=== PATIENT | male | born 1945 | race Caucasian/White ===

== ENCOUNTER 2017-07-25 14:29 | Emergency (ER) | payer OTHER ==
[2017-07-25] MEDS ORDERED: NA CHLORIDE 0.9% 500 ML ONE (14:35)
[2017-07-25 15:11] LABS: Absolute Lymphocytes (CBC) 2.8 K/uL (0.7-4.9); Absolute Monocytes 1.3 K/uL (0.1-1.3); Basophils % 0.6 % (0-1.3); Eosinophils % 1.8 % (0-4.4); Hematocrit 38.2 % (39.6-49.0); Lymphocytes % 24.9 % (15.3-44.8); MCH 31.6 pg (27.0-35.0); MCV 96.5 fL (80-100); MPV 9.3 fL (7.6-11.3); Monocytes % 11.2 % (3.3-12.3); RBC Red Blood Cell Count 3.96 M/uL (4.33-5.43)
--- NOTE | 2017-07-25 15:13 | RAD REPORT ---
EXAM DESCRIPTION: RAD - Chest Single View - 07/25/2017 2:50 pm CLINICAL HISTORY: Chest pain. COMPARISON: 05/31/2010 FINDINGS: Portable technique limits examination quality. The lungs are grossly clear. The heart is normal in size. No displaced fractures. IMPRESSION: No acute intrathoracic process suspected.
[2017-07-25 15:18] LABS: Protime INR 1.3
[2017-07-25 15:21] LABS: Potassium 3.7 mEq/L (3.6-5.0)
--- NOTE | 2017-07-25 16:27 | EKG ---
Test Date: 2017-07-25 Test Time: 15:02:21 Clocksmith: IRINA MEASUREMENT RESULTS: Intervals: Rate: 79 NC: QRSD: 162 QT: 462 QTc: 529 [place]: P: NC: QRS: 83 T: 47 INTERPRETIVE STATEMENTS: Atrial fibrillation Right bundle branch block Abnormal ECG Compared to ECG 12/06/1991 10:00:00 Right bundle-branch block now present Sinus bradycardia no longer present Electronically Signed On 07-25-17 16:26:48 CDT by Serg Guevara
[2017-07-25 16:58] LABS: Urine Blood NEGATIVE (NEG); Urine Glucose NEGATIVE (NEG); Urine Protein NEGATIVE (NEG)
[2017-07-25] MEDS ORDERED: MIDAZOLAM HCL 2 MG/2 ML INJ ONE (17:06)
[2017-07-25] MEDS ORDERED: FENTANYL CITR 100 MCG/2 ML ONE (17:06)
--- NOTE | 2017-07-25 17:33 | ER ---
Nurse's Notes [facility] Name: Sixto Ignacio Age: 71 yrs Sex: Male : 1945 Arrival Date: 07/25/2017 Time: 14:32 Bed 4 Private MD: Diagnosis: Paroxysmal atrial fibrillation;Hypotension Presentation: 07/25 14:20 Presenting complaint: Dr Funez's office staff brought pt by wheelchair from the sv office. Pt was there with his spouse who had an appt and pt didn't appear well. EKG done, AFib. Orthostatic BP lying 86/52, sitting 86/55, standing 78/50. Pt c/o dizziness. Pt states he takes his heart meds when he feels like his heart is the way it is now. Transition of care: patient was received from another setting of care (ambulatory specialty care practice). Onset of symptoms was July 25, 2017. Care prior to arrival: None. 14:20 Method Of Arrival: Wheelchair sv 14:20 Acuity: ANURADHA 2 sv Triage Assessment: 14:25 General: Appears in no apparent distress. comfortable, well developed, Behavior is sv calm, cooperative, appropriate for age. Pain: Denies pain. EENT: No signs and/or symptoms were reported regarding the EENT system. Neuro: Level of Consciousness is awake, alert, obeys commands, Oriented to person, place, time, situation, Moves all extremities. Full function Gait is steady, Speech is normal, Reports dizziness. Cardiovascular: Heart tones S1 S2 present Patient's skin is warm and dry. Pulses are 3+ in right radial artery and left radial artery. Respiratory: Respiratory effort is even, unlabored, Respiratory pattern is regular, symmetrical. Derm: Skin is pink, warm \T\ dry. Musculoskeletal: Range of motion: intact in all extremities. Historical: - Allergies: 14:43 Codeine; sv - Home Meds: 14:43 Celecoxib Oral [Active]; diclofenac oral oral [Active]; Effexor XR Oral [Active]; sv levothyroxine oral [Active]; Lyrica Oral [Active]; pentoxifylline oral oral [Active]; Pradaxa oral oral [Active]; Simvastatin Oral [Active]; Toprol XL Oral [Active]; Verapamil Oral [Active]; - PMHx: 14:43 Hypertension; dyslipidemia; PVD; Atrial Fib; sv - Immunization history:: Adult Immunizations up to date. - Social history:: Smoking status: Patient uses tobacco products, smokes one pack cigarettes per day. - Family history:: not pertinent. - Hospitalizations: : No recent hospitalization is reported. Screenin:44 Abuse screen: Denies threats or abuse. Denies injuries from another. Nutritional sv screening: No deficits noted. Tuberculosis screening: No symptoms or risk factors identified. Fall Risk None identified. Assessment: 14:46 Reassessment: See triage assessment. sv 15:27 Reassessment: Patient appears in no apparent distress at this time. No changes from sv previously documented assessment. Patient and/or family updated on plan of care and expected duration. Pain level reassessed. Patient is alert, oriented x 3, equal unlabored respirations, skin warm/dry/pink. 17:38 Reassessment: Patient appears in no apparent distress at this time. Patient and/or sv family updated on plan of care and expected duration. Pain level reassessed. Patient is alert, oriented x 3, equal unlabored respirations, skin warm/dry/pink. Patient states feeling better. Patient states symptoms have improved. 18:03 Reassessment: Patient appears in no apparent distress at this time. Patient and/or sv family updated on plan of care and expected duration. Pain level reassessed. Patient is alert, oriented x 3, equal unlabored respirations, skin warm/dry/pink. Patient denies pain at this time. Patient states feeling better. Patient states symptoms have improved. Vital Signs: 14:35 BP 91 / 67; Pulse 90; Resp 20 S; iw 14:39 BP 92 / 62; Pulse 84; Resp 20 S; Temp 98.2; Pulse Ox 96% on R/A; Weight 98.88 kg; iw Height 6 ft. 3 in. (190.50 cm); Pain 0/10; 14:54 BP 88 / 59; Pulse 87; Resp 20; Pulse Ox 99% ; sv 15:26 BP 75 / 52; Pulse 79 MON; Resp 17; Pulse Ox 96% on R/A; sv 16:00 BP 94 / 80; Pulse 82; Resp 16; Pulse Ox 100% on R/A; ag 16:30 BP 96 / 68; Pulse 77; Resp 16; Pulse Ox 100% ; ag 17:16 Pulse 83 MON; sv 17:19 BP 95 / 68; Pulse 74 MON; Pulse Ox 100% ; sv 17:21 Pulse 71; sv 17:22 Pulse 68 MON; sv 17:24 BP 108 / 76; sv 17:33 BP 108 / 78; rn 17:36 BP 105 / 71; Pulse 66 MON; Resp 11; Pulse Ox 99% ; sv 18:03 BP 105 / 82; Pulse 67 MON; Resp 16; Pulse Ox 98% on R/A; sv 14:39 Body Mass Index 27.25 (98.88 kg, 190.50 cm) iw 15:26 A fib sv 17:16 A fib sv 17:19 A fib sv 17:22 Sinus Rhythm with PACs sv 17:24 Sinus Rhythm with PACs sv 17:36 Sinus Rhythm sv 18:03 Sinus Rhythm sv ED Course: 14:25 Initial lab(s) drawn, by me, sent to lab. Inserted saline lock: 18 gauge in left sv antecubital area, using aseptic technique. Blood collected. Flushed left antecubital with 5 ml normal saline. 14:32 Patient arrived in ED. iw 14:36 Andrés Brandon MD is Attending Physician. rn 14:37 Sandra Moreno RN is Primary Nurse. sv 14:40 Triage completed. sv 14:43 Arm band placed on right wrist. sv 14:44 Patient has correct armband on for positive identification. Placed in gown. Bed in low sv position. Call light in reach. labor and employment paralegal on. Pulse ox on. NIBP on. Notified ED physician of. Door closed. Head of bed elevated. 14:50 X-ray completed. Portable x-ray completed in exam room. Patient tolerated procedure ml well. 14:50 XRAY Chest (1 view) In Process Unspecified. EDMS 15:19 EKG done, by polytechnic registrar. reviewed by Andrés Brandon MD. at1 17:00 Consent for cardioversion. sv 17:16 Assist provider with cardioversion (synchronized) with pads, for treatment of A fib sv with 100 joules X 1. Set up for procedure. Performed by Andrés Brandon MD Monitored with product designer, pulse ox, Post procedure rhythm is A fib. Patient tolerated well. 17:19 Assist provider with cardioversion (synchronized) with pads, for treatment of A fib sv with 150 joules X 1. Set up for procedure. Performed by Andrés Brandon MD Monitored with product designer, pulse ox, Post procedure rhythm is A fib. Patient tolerated well. 17:21 Assist provider with cardioversion (synchronized) with pads, for treatment of A fib sv with 150 joules X 1. Set up for procedure. Performed by Andrés Brandon MD Monitored with product designer, pulse ox, Post procedure rhythm is sinus rhythm. Patient tolerated well. Pads placed on back and front.. 17:31 EKG done, by polytechnic registrar. reviewed by Andrés Brandon MD Post cardioversion. at1 17:32 Pan Funez MD is Referral Physician. rn 18:03 IV discontinued, intact, bleeding controlled, No redness/swelling at site. Pressure sv dressing applied. Administered Medications: 14:46 Drug: NS 0.9% 500 ml Route: IV; Rate: bolus; Site: left antecubital; sv 15:15 Follow up: Response: No adverse reaction; IV Status: Completed infusion; IV Intake: sv 500ml 15:32 Drug: NS 0.9% 250 ml Route: IV; Rate: bolus; Site: left antecubital; sg 16:00 Follow up: Response: No adverse reaction; IV Status: Completed infusion; IV Intake: sv 250ml 17:11 Drug: Versed 1 mg Route: IVP; Site: left antecubital; sv 18:06 Follow up: Response: No adverse reaction sv 17:11 Drug: fentaNYL (PF) 25 mcg Route: IVP; Site: left antecubital; sv 18:06 Follow up: Response: No adverse reaction sv 17:14 Drug: fentaNYL (PF) 25 mcg Route: IVP; Site: left antecubital; sv 18:06 Follow up: Response: No adverse reaction sv Intake: 15:15 IV: 500ml; Total: 500ml. sv 16:00 IV: 250ml; Total: 750ml. sv Outcome: 17:33 Discharge ordered by MD. rn 18:03 Discharged to home via wheelchair, with family. sv 18:03 Condition: stable 18:03 Condition: improved 18:03 Discharge instructions given to patient, family, Instructed on discharge instructions, follow up and referral plans. Demonstrated understanding of instructions, follow-up care. 18:07 Patient left the ED. sv Signatures: Dispatcher [employer] Sandra Morfin RN RN sv Gay, Steven, RN RN Adonay, Marcia, RN Britt Horta Roman, MD MD rn gonzales, Amanda, bleach plant operator EKG Tat1 Chelsi Valdes Corrections: (The following items were deleted from the chart) 19:17 17:21 Assist provider with cardioversion (synchronized) with pads, for treatment of A sv fib with 150 joules X 1. Set up for procedure. Performed by Andrés Brandon MD Monitored with product designer, pulse ox, Post procedure rhythm is sinus rhythm. Patient tolerated well. Pads placed on back and front.. sv
--- NOTE | 2017-07-25 17:33 | EDPHYS ---
Physician Documentation [facility] Name: Sixto Ignacio Age: 71 yrs Sex: Male : 1945 Arrival Date: 07/25/2017 Time: 14:32 Bed 4 Private MD: ED Physician Andrés Brandon HPI: 07/25 17:29 This 71 yrs old Male presents to ER via Wheelchair with complaints of rn Irregular Pulse. 17:29 The patient presents with a history of irregular heart beat. Context: The symptoms rn occur at rest. Onset: The symptoms/episode began/occurred this morning. Modifying factors: The symptoms are aggravated by nothing. The symptoms are alleviated by nothing. Severity of symptoms: At their worst the symptoms were moderate in the emergency department the symptoms have improved. The patient has experienced similar episodes in the past. Sent by Dr. Guevara from clinic, has known afib, on pradaxa and metoprolol, hasn't missed any doses, sent for hypotension. NO vomiting/diarrhea, eating/drinking well. . Historical: - Allergies: 14:43 Codeine; sv - Home Meds: 14:43 Celecoxib Oral [Active]; diclofenac oral oral [Active]; Effexor XR Oral [Active]; sv levothyroxine oral [Active]; Lyrica Oral [Active]; pentoxifylline oral oral [Active]; Pradaxa oral oral [Active]; Simvastatin Oral [Active]; Toprol XL Oral [Active]; Verapamil Oral [Active]; - PMHx: 14:43 Hypertension; dyslipidemia; PVD; Atrial Fib; sv - Immunization history:: Adult Immunizations up to date. - Social history:: Smoking status: Patient uses tobacco products, smokes one pack cigarettes per day. - Family history:: not pertinent. - Hospitalizations: : No recent hospitalization is reported. ROS: 17:29 Constitutional: Negative for fever, chills, and weight loss, Eyes: Negative for injury, rn pain, redness, and discharge, Neck: Negative for injury, pain, and swelling, Cardiovascular: Negative for chest pain, edema, Respiratory: Negative for shortness of breath, cough, wheezing, and pleuritic chest pain, Abdomen/GI: Negative for abdominal pain, nausea, vomiting, diarrhea, and constipation, MS/Extremity: Negative for injury and deformity, Skin: Negative for injury, rash, and discoloration, Neuro: + lightheaded Exam: 17:29 Constitutional: This is a well developed, well nourished patient who is awake, alert, rn and in no acute distress. Head/Face: Normocephalic, atraumatic. Eyes: Pupils equal round and reactive to light, extra-ocular motions intact. Lids and lashes normal. Conjunctiva and sclera are non-icteric and not injected. Cornea within normal limits. Periorbital areas with no swelling, redness, or edema. Neck: Trachea midline, no thyromegaly or masses palpated, and no cervical lymphadenopathy. Supple, full range of motion without nuchal rigidity, or vertebral point tenderness. No Meningismus. Cardiovascular: Irregular, tachycardic, no murmur Respiratory: Lungs have equal breath sounds bilaterally, clear to auscultation and percussion. No rales, rhonchi or wheezes noted. No increased work of breathing, no retractions or nasal flaring. Abdomen/GI: Soft, non-tender, with normal bowel sounds. No distension or tympany. No guarding or rebound. No evidence of tenderness throughout. MS/ Extremity: Pulses equal, no cyanosis. Neurovascular intact. Full, normal range of motion. Equal circumference. Neuro: Awake and alert, GCS 15, oriented to person, place, time, and situation. Cranial nerves II-XII grossly intact. Motor strength 5/5 in all extremities. Sensory grossly intact. Vital Signs: 14:35 BP 91 / 67; Pulse 90; Resp 20 S; iw 14:39 BP 92 / 62; Pulse 84; Resp 20 S; Temp 98.2; Pulse Ox 96% on R/A; Weight 98.88 kg; iw Height 6 ft. 3 in. (190.50 cm); Pain 0/10; 14:54 BP 88 / 59; Pulse 87; Resp 20; Pulse Ox 99% ; sv 15:26 BP 75 / 52; Pulse 79 MON; Resp 17; Pulse Ox 96% on R/A; sv 16:00 BP 94 / 80; Pulse 82; Resp 16; Pulse Ox 100% on R/A; ag 16:30 BP 96 / 68; Pulse 77; Resp 16; Pulse Ox 100% ; ag 17:16 Pulse 83 MON; sv 17:19 BP 95 / 68; Pulse 74 MON; Pulse Ox 100% ; sv 17:21 Pulse 71; sv 17:22 Pulse 68 MON; sv 17:24 BP 108 / 76; sv 17:33 BP 108 / 78; rn 17:36 BP 105 / 71; Pulse 66 MON; Resp 11; Pulse Ox 99% ; sv 18:03 BP 105 / 82; Pulse 67 MON; Resp 16; Pulse Ox 98% on R/A; sv 14:39 Body Mass Index 27.25 (98.88 kg, 190.50 cm) iw 15:26 A fib sv 17:16 A fib sv 17:19 A fib sv 17:22 Sinus Rhythm with PACs sv 17:24 Sinus Rhythm with PACs sv 17:36 Sinus Rhythm sv 18:03 Sinus Rhythm sv Procedures: 17:29 Cardioversion: (synchronized) for treatment of A fib, with 100 joules X 1. 150 joules X rn 2. Post procedure rhythm is sinus rhythm, the patient tolerated the procedure well. MDM: 14:36 Patient medically screened. rn 17:05 ED course: Pt with normal w/u, feels better, wants to go home, asking me to shock him rn back to sinus rhythm, consulted with Dr. Guevara, states pt is anticoagulated and if still hypotensive ok to cardiovert. Explained risks and patient/family want him cardioverted since they state his paroxysmal afib if far and few in between. . 17:29 Differential diagnosis: arrythmia, dehydration, stress disorder. Data reviewed: vital rn signs, nurses notes, lab test result(s), EKG, radiologic studies, plain films, and as a result, I will discharge patient. 17:29 Counseling: I had a detailed discussion with the patient and/or guardian regarding: the rn historical points, exam findings, and any diagnostic results supporting the discharge/admit diagnosis, lab results, radiology results, the need for outpatient follow up, to return to the emergency department if symptoms worsen or persist or if there are any questions or concerns that arise at home. 07/25 14:37 Order name: Basic Metabolic Panel; Complete Time: 16: rn 07/25 14:37 Order name: CBC with Diff; Complete Time: 16: rn 07/25 14:37 Order name: Magnesium; Complete Time: 16: rn 07/25 14:37 Order name: PT-INR; Complete Time: 16: rn 07/25 14:37 Order name: Ptt, Activated; Complete Time: 16:08 rn 07/25 14:37 Order name: Troponin (emerg Dept Use Only); Complete Time: 16:08 rn 07/25 14:37 Order name: XRAY Chest (1 view); Complete Time: 15:19 rn 07/25 14:37 Order name: EKG; Complete Time: 14:37 rn 07/25 16:49 Order name: Urine Dipstick-Ancillary; Complete Time: 17:32 EDMS 07/25 14:37 Order name: Cardiac monitoring; Complete Time: 14:47 rn 07/25 14:37 Order name: EKG - Nurse/Tech; Complete Time: 18:05 rn 07/25 14:37 Order name: IV Saline Lock; Complete Time: 14:47 rn 07/25 14:37 Order name: Labs collected and sent; Complete Time: 14:47 rn 07/25 14:37 Order name: O2 Per Protocol; Complete Time: 14:47 rn 07/25 14:37 Order name: O2 Sat Monitoring; Complete Time: 14:47 rn 07/25 17:39 Order name: EKG Electrocardiogram; Complete Time: 18:04 EDMS Administered Medications: 14:46 Drug: NS 0.9% 500 ml Route: IV; Rate: bolus; Site: left antecubital; sv 15:15 Follow up: Response: No adverse reaction; IV Status: Completed infusion; IV Intake: sv 500ml 15:32 Drug: NS 0.9% 250 ml Route: IV; Rate: bolus; Site: left antecubital; sg 16:00 Follow up: Response: No adverse reaction; IV Status: Completed infusion; IV Intake: sv 250ml 17:11 Drug: Versed 1 mg Route: IVP; Site: left antecubital; sv 18:06 Follow up: Response: No adverse reaction sv 17:11 Drug: fentaNYL (PF) 25 mcg Route: IVP; Site: left antecubital; sv 18:06 Follow up: Response: No adverse reaction sv 17:14 Drug: fentaNYL (PF) 25 mcg Route: IVP; Site: left antecubital; sv 18:06 Follow up: Response: No adverse reaction sv Disposition: 07/25/17 17:33 Discharged to Home. Impression: Paroxysmal atrial fibrillation, Hypotension. - Condition is Stable. - Discharge Instructions: Atrial Fibrillation, Electrical Cardioversion. - Medication Reconciliation Form, Thank You Letter, Antibiotic Education, Prescription Opioid Use form. - Follow up: Pan Funez MD; When: As needed; Reason: Recheck today's complaints, Re-evaluation by your physician. - Problem is new. - Symptoms have improved. Signatures: Dispatcher [employer] Sandra Morfin RN RN sv Gay, Steven, RN RN sg Nieto, Roman, MD MD rn
--- NOTE | 2017-07-26 | EKG ---
Test Date: 2017-07-25 Test Time: 17:23:24 Auto Damage Estimator: IRINA MEASUREMENT RESULTS: Intervals: Rate: 67 W[place]: 148 QRSD: 168 QT: 470 QTc: 496 [place]: P: 66 W[place]: 148 QRS: 91 T: 49 INTERPRETIVE STATEMENTS: Normal sinus rhythm Right bundle branch block Abnormal ECG Compared to ECG 07/25/2017 15:02:21 Atrial fibrillation no longer present Electronically Signed On 07-26-17 00:00:27 CDT by Serg Guevara
== END 2017-07-25 18:07 | disposition home or self-care (01) ==
LOC: ER 14:29
PROC: 5A2204Z Restoration of Cardiac Rhythm, Single (ICD-10-PCS; principal; 2017-07-25)
DX: I48.0 Paroxysmal atrial fibrillation (principal); Z79.01 Long term (current) use of anticoagulants; F17.210 Nicotine dependence, cigarettes, uncomplicated; I10 Essential (primary) hypertension; Z88.5 Allergy status to narcotic agent; E78.5 Hyperlipidemia, unspecified
CPT/HCPCS: 36415; 71045; 80048; 81003; 83735; 84484; 85025; 85610; 85730; 92960; 93005 ×2; 96361; 96374; 96375; 99285; J2250; J3010

== ENCOUNTER 2017-08-29 07:55 | Day surgery (SDC) | payer OTHER ==
[2017-08-24 14:01] LABS: Absolute Lymphocytes (CBC) 1.9 K/uL (0.7-4.9); Absolute Monocytes 0.7 K/uL (0.1-1.3); Absolute Neutrophil 6.2 K/uL (1.8-8.0); Basophils % 0.8 % (0-1.3); Hematocrit 40.7 % (39.6-49.0); Lymphocytes % 20.3 % (15.3-44.8); MCH 31.9 pg (27.0-35.0); MCV 97.4 fL (80-100); Monocytes % 7.8 % (3.3-12.3); RBC Red Blood Cell Count 4.18 M/uL (4.33-5.43)
--- NOTE | 2017-08-24 14:01 | RAD REPORT ---
EXAM DESCRIPTION: RAD - Chest Pa And Lat (2 Views) - 08/24/2017 1:12 pm CLINICAL HISTORY: Preop chest, pending cardiac catheterization COMPARISON: July 2017, May 2010 TECHNIQUE: PA and lateral views of the chest were obtained. FINDINGS: The lungs are clear of failure, infiltrate or mass. Lung markings are not substantially di fferent from the prior study. Patient may have some minimal progression of fibrosis. Heart size is normal and central vasculature is within normal limits. No pleural effusion or pneumothorax seen. N o acute bony finding noted. No aortic abnormality. IMPRESSION: No acute cardiopulmonary process. Patient likely has a minimal fibrotic lung pattern progressive from the more remote comparison study.
[2017-08-24 14:12] LABS: Protime INR 1.15
[2017-08-24 14:39] LABS: Potassium 3.8 mEq/L (3.6-5.0)
--- NOTE | 2017-08-24 16:20 | EKG ---
Test Date: 2017-08-24 Test Time: 12:47:32 Time Buyer: ERIN MEASUREMENT RESULTS: Intervals: Rate: 69 FL: 176 QRSD: 174 QT: 466 QTc: 499 [place]: P: 45 FL: 176 QRS: 88 T: 39 INTERPRETIVE STATEMENTS: Normal sinus rhythm Right bundle branch block Abnormal ECG Compared to ECG 07/25/2017 17:23:24 No significant changes Electronically Signed On 08-24-17 16:19:09 CDT by Pan Funez
[2017-08-29] MEDS ORDERED: NA CHLORIDE 0.9% 500 ML ONE (08:12)
[2017-08-29] MEDS ORDERED: MIDAZOLAM HCL 2 MG/2 ML INJ ONE ×2 (08:59→09:11)
[2017-08-29] MEDS ORDERED: NA CHLORIDE 0.9% 0 ML ONE (09:00)
[2017-08-29] MEDS ORDERED: ATROPINE SULF 1 MG/10 ML SYR IV ONE (09:00)
[2017-08-29] MEDS ORDERED: LIDOCAINE 1% 20 ML MDV ONE (09:00)
[2017-08-29] MEDS ORDERED: FENTANYL CITR 100 MCG/2 ML ONE (09:00)
[2017-08-29] MEDS ORDERED: HEPA 1000U/500MLS 1,000 UNIT/500 ML BAG IV ONE (09:00)
--- NOTE | 2017-08-29 11:47 | OP ---
Date of Procedure: 08/29/2017 Surgeon: Pan Funez MD Biofuels Production Manager: Imani Ambrose. Procedures: Left heart catheterization, selective coronary arteriogram. Indications: The patient was brought into the forestry laborer because of unstable angina, atrial fibrillati on. He was taking Pradaxa, which was held for 48 hours prior to the procedure. Description Of Procedure: He was brought to the forestry laborer as an outpatient, prepped and draped in rou kalyani sterile fashion, given 2 mg of Versed for IV sedation. A common femoral artery 6-Welsh sheath was introduced successfully. Angio-Seal was used to close the case. A 6-Welsh diagnostic Sherry c atheter were used to do the coronary arteriogram. He has a normal small RCA that is nondominant. Hi s circumflex was large, dominant, free of disease. He had a 20% ostial LAD, about 30% mid LAD, moder ate plaquing the LAD. He was in normal rhythm. He tolerated the procedure well. There were no comp lications. Blood Loss: 5 cc. Conscious Sedation: 30 minutes. Postoperative Diagnosis: Mild coronary artery disease. Plan: For medical treatment. He will resume Pradaxa tomorrow for his atrial fibrillation. He will go home today in about 2 hours. Operators: MD DEMETRIUS Farmer/NEELA Voice ID: [id number] Report ID: [id number]
== END 2017-08-29 11:30 | disposition home or self-care (01) ==
LOC: CCL 07:55
DX: I25.110 Atherosclerotic heart disease of native coronary artery with unstable angina pectoris (principal); I48.91 Unspecified atrial fibrillation; I10 Essential (primary) hypertension; E78.5 Hyperlipidemia, unspecified; F17.210 Nicotine dependence, cigarettes, uncomplicated; E78.6 Lipoprotein deficiency; Z82.49 Family history of ischemic heart disease and other diseases of the circulatory system
CPT/HCPCS: 36415; 71046; 80048; 85025; 85610; 85730; 93005; 93454; C1760; C1893; J2250 ×2; J3010; J0583